=== PATIENT | male | born 1980 | race Caucasian/White ===

== ENCOUNTER 2021-04-22 09:21 | Emergency (ER) | payer OTHER ==
[2021-04-22 09:49] VITALS: BP 118/74; PULSE 59; TEMP 97.8; BMI 15.2
[2021-04-22] MEDS ORDERED: ACETAMINOPHEN 500 MG TABLET (FP) PO ONE (10:08)
[2021-04-22] MEDS ORDERED: ACETAMINOPHEN 325 MG TABLET (FP) ONE (10:10)
== END 2021-04-22 11:32 | disposition home or self-care (01) ==
LOC: JER 09:21 → JERFT 09:21
PROC: 0HQ0XZZ Repair Scalp Skin, External Approach (ICD-10-PCS; principal; 2021-04-22)
DX: S01.91XA Laceration without foreign body of unspecified part of head, initial encounter (principal); W01.0XXA Fall on same level from slipping, tripping and stumbling without subsequent striking against object, initial encounter; Y93.01 Activity, walking, marching and hiking
CPT/HCPCS: 70450-TC; 99284-25